=== PATIENT | female | born 1990 | race Caucasian/White ===

== ENCOUNTER 2019-08-25 14:51 | Emergency (ER) | payer SELFPAY ==
[2019-08-25] MEDS ORDERED: IBUPROFEN 600 MG TABLET PO ONE (15:23)
--- NOTE | 2019-08-25 15:26 | ER Document Report ---
HPI - HPI Time Seen by Provider: 08/25/19 15:20 Context: Patient is a 28-year-old female who presents the emergency department with a chief complaint of right foot and great toe pain. Patient states that she was walking down the steps and missed the step and ended up hurting her foot. Patient is able to wiggle her toes. Patient states that mainly her great toe hurts. Patient has history of asthma. She does not take any medications. She did not take any medications to help the pain. - ROS Systems Reviewed and Negative: Yes All other systems reviewed and negative - CONSTITUTIONAL Constitutional: DENIES: Fever, Chills - MUSCULOSKELETAL Musculoskeletal: REPORTS: Extremity pain - right foot/great toe - DERM Skin Color: Normal Skin Problems: None Past Medical History - General Information source: Patient - Social History Smoking Status: Unknown if Ever Smoked Family History: Reviewed & Not Pertinent Vertical Provider Document - CONSTITUTIONAL Agree With Documented VS: Yes Exam Limitations: No Limitations General Appearance: No Apparent Distress - HEENT HEENT: Atraumatic, Normocephalic, PERRLA - NECK Neck: Normal Inspection - RESPIRATORY Respiratory: No Respiratory Distress - CARDIOVASCULAR Cardiovascular: Regular Rhythm Pulses: Normal: Posterior tibial, Dorsalis pedis - MUSCULOSKELETAL/EXTREMETIES Musculoskeletal/Extremeties: FROM, Tender - Top of right foot and right great toe, No Edema. negative: Eccymosis - NEURO Level of Consciousness: Awake, Alert, Appropriate Motor/Sensory: No Motor Deficit, No Sensory Deficit - DERM Integumentary: Warm, Dry, No Rash Course - Re-evaluation Re-evalutation: 08/25/19 16:44 Patient's x-ray is unremarkable. Capillary refill less than 3 seconds. Dorsalis pedis and posterior tibial pulses 2+. No vascular compromise noted. Patient will be given an prescription, postop shoe, and crutches. She will follow-up with her primary care provider. Follow-up precautions were given. Verbal discharge instructions were given to the patient. They verbalized understanding. They are stable for discharge. - Vital Signs Vital signs: Temp Pulse Resp BP Pulse Ox 67.9 F L 94 16 123/63 99 08/25/19 15:02 08/25/19 15:02 08/25/19 15:02 08/25/19 15:02 08/25/19 15:02 Procedures - Immobilization Right Foot Immobilizer type: David wrap, Crutches, Post-op shoe Performed by: RN Post-Proc Neuro Vasc Exam: Normal, Unchanged from pre-exam Alignment checked and good: Yes Discharge - Discharge Clinical Impression: Right foot pain Condition: Stable Disposition: HOME, SELF-CARE Additional Instructions: You were seen today in the emergency department for right foot pain. Your x-ray is normal. Please rest, apply ice, and elevate your foot. Keep it wrapped in David wrap. Use the postop shoe to help protect her foot. Follow-up with your primary care provider if you continue to have pain. Take ibuprofen 600 mg and acetaminophen 1000 mg every 6 hours as needed for your pain.
--- NOTE | 2019-08-25 15:57 | RADIOLOGY REPORT (SQ) ---
EXAM DESCRIPTION: FOOT RIGHT COMPLETE IMAGES COMPLETED DATE/TIME: 08/25/2019 3:42 pm REASON FOR STUDY: right foot pain; fall COMPARISON: None. NUMBER OF VIEWS: Three views. TECHNIQUE: AP, lateral and oblique radiographic images acquired of the right foot. LIMITATIONS: None. FINDINGS: MINERALIZATION: Normal. BONES: No acute fracture or dislocation. JOINTS: The normal tarsometatarsal alignment is preserved. SOFT TISSUES: No soft tissue swelling or radiopaque foreign body. OTHER: No other finding. IMPRESSION: No acute osseous abnormality of the right foot. TECHNICAL DOCUMENTATION: JOB ID: [id number] [employer]- All Rights Reserved Reading location - IP/workstation name: [email or web address]
[2019-08-25 16:59] VITALS: BP 113/73
== END 2019-08-25 16:59 | disposition home or self-care (01) ==
LOC: ER 14:51
DX: M79.671 Pain in right foot (principal)
CPT/HCPCS: 99283